=== PATIENT | male | born 1985 | race Caucasian/White ===

== ENCOUNTER 2019-10-28 13:53 | Emergency (ER) | payer OTHER ==
[~2019-10-28] VITALS: Ht 190.5 cm; Wt 78.6 kg
[2019-10-28 16:38] VITALS: BP 136/90
[2019-10-28] MEDS ORDERED: acetaminophen 325mg tablet PO STA (17:00)
== END 2019-10-28 17:21 | disposition home or self-care (01) ==
LOC: ER 13:54
DX: S41.132A Puncture wound without foreign body of left upper arm, initial encounter (principal); S40.022A Contusion of left upper arm, initial encounter; R68.2 Dry mouth, unspecified; F17.200 Nicotine dependence, unspecified, uncomplicated; F11.90 Opioid use, unspecified, uncomplicated; Z60.2 Problems related to living alone; W46.0XXA Contact with hypodermic needle, initial encounter; Y93.89 Activity, other specified; Y92.89 Other specified places as the place of occurrence of the external cause; Y99.8 Other external cause status
CPT/HCPCS: 73070; 93005; 99283